=== PATIENT | male | born 1980 | race Two or more races ===

== ENCOUNTER 2021-04-02 00:05 | Emergency (ER) | payer SELFPAY ==
[~2021-04-02] VITALS: Ht 167.6 cm; Wt 64.0 kg
[2021-04-02 00:29] VITALS: BP 136/96
[2021-04-02] MEDS ORDERED: LORazepam 2 MG/ML VIAL IVP ONE (00:50)
[2021-04-02] MEDS ORDERED: NACL 0.9% 1,000 ML IV ONE (00:50)
[2021-04-02] MEDS ORDERED: LORA-476 PO (02:05)
[2021-04-02 02:26] VITALS: BP 111/56
== END 2021-04-02 02:26 | disposition home or self-care (01) ==
LOC: MED 00:05
DX: F10.239 Alcohol dependence with withdrawal, unspecified (principal)
CPT/HCPCS: 96361; 96374; 99283; J2060; J7030